=== PATIENT | female | born 1970 | race Caucasian/White ===

== ENCOUNTER 2019-03-16 22:52 | Emergency (ER) | payer BC ==
[~2019-03-16] VITALS: Ht 157.5 cm; Wt 79.4 kg
[~2019-03-16 22:52] MED LIST: PANT40TA2 PO
[2019-03-17 01:02] VITALS: BP 123/70
== END 2019-03-17 02:10 | disposition left against medical advice (07) ==
LOC: ER 22:53
DX: M25.512 Pain in left shoulder (principal); Z53.21 Procedure and treatment not carried out due to patient leaving prior to being seen by health care provider; V43.52XA Car driver injured in collision with other type car in traffic accident, initial encounter; Y93.89 Activity, other specified; Y99.8 Other external cause status; Y92.410 Unspecified street and highway as the place of occurrence of the external cause